=== PATIENT | male | born 1945 | race Caucasian/White ===

== ENCOUNTER 2017-08-02 14:48 | Inpatient (IN) ==
[2017-08-02 16:20] LABS: Apearance,Urine CLOUDY (Clear); Bacteria,Urine Many /HPF (Few); Bilirubin,Urine Negative (Negative); Blood, Urine Negative (Negative); Glucose,Urine (UA) Negative (Negative); Ketones,Urine Negative (Negative); Mucus,Urine Moderate /LPF (Occasional); Nitrite,Urine Positive (Negative); Protein,Urine 30 MG/DL; RBC,Urine 17 /HPF (0-4); Urine Color Yellow (Yellow); Urine Specific Gravity 1.021 (1.001-1.035); Urine Urobilinogen < 2.0 EU/DL (0.2-1.0); WBC,Urine 886 /HPF (0-6)
[2017-08-02 16:32] LABS: Basophils % 0.1 % (0.0-0.8); Eosinophils # 0.1 10*3/uL (0.0-0.87); Eosinophils % 0.6 % (0.00-10.9); Hemoglobin 14.4 GM/DL (14.0-18.0); Immature Granulocytes % 0.4 %; Immature Granulocytes Absolute 0.05 #; Lymphocytes # 1.3 10*3/uL (1.4-4.0); Mean Corpuscular HGB Conc 33.5 GM/DL (32-36); Mean Corpuscular Hemoglobin 30 PG (27-34); Mean Corpuscular Volume 90.3 FL (87-102); Mean Platelet Volume 9.7 FL (9.6-12.0); Monocytes # 1.4 10*3/uL (0.11-0.8); Monocytes % 9.7 % (1.7-12.7); Neutrophils # 11.3 10*3/uL (1.4-7.4); Neutrophils % 80.2 % (38.7-73.9); Platelet Count 373 T/CUMM (130-400); Red Blood Count 4.76 MC/CUMM (3.8-5.5); Red Cell Distribution Width 13.2 % (9.3-17.3); White Blood Count 14.1 T/CUMM (4-12)
[2017-08-02 16:54] LABS: Albumin 2.2 G/DL (3.4-5.0); Bilirubin,Total 0.4 MG/DL (0.2-1.0); Calcium 8.6 MG/DL (8.5-10.1); Osmolality,Calculated 284.3 MOS/KG (273-304); Potassium 4.3 MMOL/L (3.5-5.1); Total Protein 6.4 G/DL (6.4-8.3)
[2017-08-02] MEDS ORDERED: SODIUM CHLORIDE 0.9% 1,000 ML IV STA (16:58)
[2017-08-02] MEDS ORDERED: ceFAZolin 1,000 MG VIAL ONE (17:15)
[2017-08-02] MEDS ORDERED: ACETAMINOPHEN 325 MG TABLET PO PRN (18:14)
[2017-08-02] MEDS: POTASSIUM CHLORIDE 20 MEQ TABLET PO SCH ×2 (18:49→20:45)
[2017-08-02] MEDS: ENOXAPARIN 40 MG/0.4 ML SYRINGE SUBCUT SCH (18:56)
[2017-08-02] MEDS: SODIUM CHLORIDE 0.45% 1,000 ML IV SCH (18:57)
[2017-08-02 20:18] LABS: Free T4 (Free Thyroxine) 1.38 NG/DL (0.76-1.46); Thyroid Stimulating Hormone 1.33 uIU/ml (0.358-3.74)
[2017-08-02] MEDS: PHENYTOIN ER 100 MG CAPSULE PO SCH (20:45)
[2017-08-02] MEDS: PHENobarbital 30 MG TABLET PO SCH (20:46)
[2017-08-03] MEDS: SODIUM CHLORIDE 0.45% 1,000 ML IV SCH ×2 (05:00→15:05)
[2017-08-03 08:42] LABS: Basophils % 0.2 % (0.0-0.8); Eosinophils # 0.3 10*3/uL (0.0-0.87); Eosinophils % 2.7 % (0.00-10.9); Hematocrit 33.5 VOL% (42.0-52.0); Hemoglobin 11.5 GM/DL (14.0-18.0); Immature Granulocytes % 0.3 %; Immature Granulocytes Absolute 0.03 #; Lymphocytes # 1.9 10*3/uL (1.4-4.0); Lymphocytes % 20.2 % (21.2-54.2); Mean Corpuscular HGB Conc 34.3 GM/DL (32-36); Mean Corpuscular Hemoglobin 31 PG (27-34); Mean Corpuscular Volume 89.3 FL (87-102); Mean Platelet Volume 10.4 FL (9.6-12.0); Monocytes # 0.9 10*3/uL (0.11-0.8); Monocytes % 9.5 % (1.7-12.7); Neutrophils # 6.2 10*3/uL (1.4-7.4); Neutrophils % 67.1 % (38.7-73.9); Platelet Count 281 T/CUMM (130-400); Red Blood Count 3.75 MC/CUMM (3.8-5.5); Red Cell Distribution Width 13.2 % (9.3-17.3); White Blood Count 9.2 T/CUMM (4-12)
[2017-08-03 09:10] LABS: Osmolality,Calculated 278.4 MOS/KG (273-304)
[2017-08-03] MEDS: PHENobarbital 30 MG TABLET PO SCH ×2 (10:06→21:00)
[2017-08-03] MEDS: FOLIC ACID 1 MG TABLET PO SCH (10:06)
[2017-08-03] MEDS: LEVOTHYROXINE 50 MCG TABLET PO SCH (10:06)
[2017-08-03] MEDS: PHENYTOIN ER 100 MG CAPSULE PO SCH ×2 (10:06→10:31)
[2017-08-03] MEDS: predniSONE 5 MG TABLET PO SCH (10:06)
[2017-08-03] MEDS: SIMVASTATIN 40 MG TABLET PO SCH (10:06)
[2017-08-03] MEDS: POTASSIUM CHLORIDE 20 MEQ TABLET PO SCH ×4 (10:06→20:59)
[2017-08-03] MEDS: PANTOPRAZOLE 40 MG TABLET PO SCH (10:08)
[2017-08-03] MEDS: DOCUSATE SODIUM 100 MG CAPSULE PO SCH (10:08)
[2017-08-03] MEDS: TAMSULOSIN 0.4 MG CAPSULE PO SCH (10:08)
[2017-08-03] MEDS: ZINC OXIDE PASTE 113 GM TUBE TOP SCH ×2 (15:00→21:00)
[2017-08-03] MEDS: PHENYTOIN 100 MG/4 ML UDCUP PO SCH ×2 (15:00→20:59)
[2017-08-03] MEDS: DUTASTERIDE 0.5 MG CAPSULE PO SCH (15:00)
[2017-08-03] MEDS: ENOXAPARIN 40 MG/0.4 ML SYRINGE SUBCUT SCH (17:49)
[2017-08-04] MEDS: SODIUM CHLORIDE 0.45% 1,000 ML IV SCH ×2 (02:11→13:18)
[2017-08-04] MEDS ORDERED: fentaNYL 100 MCG/2 ML VIAL IV ONE (06:00)
[2017-08-04] MEDS ORDERED: MIDAZOLAM 2 MG/2 ML VIAL IV ONE (06:00)
[2017-08-04 07:17] LABS: PT Patient Result 10.2 SECS; Partial Thromboplastin Time 38.6 SECS (0-40)
[2017-08-04] MEDS: DOCUSATE SODIUM 100 MG CAPSULE PO SCH (13:15)
[2017-08-04] MEDS: PHENYTOIN 100 MG/4 ML UDCUP PO SCH ×3 (13:15→21:04)
[2017-08-04] MEDS: predniSONE 5 MG TABLET PO SCH (13:16)
[2017-08-04] MEDS: POTASSIUM CHLORIDE 20 MEQ TABLET PO SCH ×4 (13:16→21:03)
[2017-08-04] MEDS: LEVOTHYROXINE 50 MCG TABLET PO SCH (13:16)
[2017-08-04] MEDS: PHENobarbital 30 MG TABLET PO SCH ×2 (13:16→21:03)
[2017-08-04] MEDS: PANTOPRAZOLE 40 MG TABLET PO SCH (13:16)
[2017-08-04] MEDS: FOLIC ACID 1 MG TABLET PO SCH (13:16)
[2017-08-04] MEDS: TAMSULOSIN 0.4 MG CAPSULE PO SCH (13:16)
[2017-08-04] MEDS: DUTASTERIDE 0.5 MG CAPSULE PO SCH (13:16)
[2017-08-04] MEDS: ZINC OXIDE PASTE 113 GM TUBE TOP SCH ×2 (13:18→21:35)
[2017-08-04] MEDS: SIMVASTATIN 40 MG TABLET PO SCH (13:19)
[2017-08-04] MEDS: ENOXAPARIN 40 MG/0.4 ML SYRINGE SUBCUT SCH (18:10)
[2017-08-05] MEDS: PHENYTOIN 100 MG/4 ML UDCUP PO SCH ×3 (09:22→20:06)
[2017-08-05] MEDS: SODIUM CHLORIDE 0.45% 1,000 ML IV SCH ×3 (09:22→17:07)
[2017-08-05] MEDS: LEVOTHYROXINE 50 MCG TABLET PO SCH (09:23)
[2017-08-05] MEDS: POTASSIUM CHLORIDE 20 MEQ TABLET PO SCH ×4 (09:23→20:06)
[2017-08-05] MEDS: PHENobarbital 30 MG TABLET PO SCH ×2 (09:23→20:06)
[2017-08-05] MEDS: DUTASTERIDE 0.5 MG CAPSULE PO SCH (09:23)
[2017-08-05] MEDS: PANTOPRAZOLE 40 MG TABLET PO SCH (09:23)
[2017-08-05] MEDS: predniSONE 5 MG TABLET PO SCH (09:23)
[2017-08-05] MEDS: SIMVASTATIN 40 MG TABLET PO SCH (09:23)
[2017-08-05] MEDS: TAMSULOSIN 0.4 MG CAPSULE PO SCH (09:23)
[2017-08-05] MEDS: FOLIC ACID 1 MG TABLET PO SCH (09:23)
[2017-08-05] MEDS: DOCUSATE SODIUM 100 MG CAPSULE PO SCH (09:23)
[2017-08-05] MEDS: ZINC OXIDE PASTE 113 GM TUBE TOP SCH ×2 (09:24→20:07)
[2017-08-05] MEDS ORDERED: SODIUM CHLORIDE 0.9% 500 ML IV ONE ×2 (11:34→12:30)
[2017-08-05 12:04] LABS: Basophils % 0.3 % (0.0-0.8); Eosinophils # 0.3 10*3/uL (0.0-0.87); Eosinophils % 4.4 % (0.00-10.9); Hematocrit 32.5 VOL% (42.0-52.0); Hemoglobin 11.1 GM/DL (14.0-18.0); Immature Granulocytes % 0.5 %; Immature Granulocytes Absolute 0.03 #; Lymphocytes # 1.6 10*3/uL (1.4-4.0); Lymphocytes % 24.6 % (21.2-54.2); Mean Corpuscular HGB Conc 34.2 GM/DL (32-36); Mean Corpuscular Hemoglobin 30 PG (27-34); Mean Corpuscular Volume 88.1 FL (87-102); Mean Platelet Volume 9.7 FL (9.6-12.0); Monocytes # 0.7 10*3/uL (0.11-0.8); Neutrophils # 3.8 10*3/uL (1.4-7.4); Neutrophils % 59.2 % (38.7-73.9); Platelet Count 280 T/CUMM (130-400); Red Blood Count 3.69 MC/CUMM (3.8-5.5); Red Cell Distribution Width 13.2 % (9.3-17.3); White Blood Count 6.4 T/CUMM (4-12)
[2017-08-05 12:42] LABS: Alanine Aminotransferase 22 U/L (16-61); Albumin 1.8 G/DL (3.4-5.0); Alkaline Phosphatase 65 U/L (45-117); Aspartate Amino Transferase 46 U/L (0-37); Bilirubin,Total < 0.39 MG/DL (0.2-1.0); Blood Urea Nitrogen 6 MG/DL (7-18); Calcium 7.8 MG/DL (8.5-10.1); Glucose 89 MG/DL (74-106); Osmolality,Calculated 275.4 MOS/KG (273-304); Potassium 3.5 MMOL/L (3.5-5.1); Sodium 140 MMOL/L (136-145); Total Protein 5.1 G/DL (6.4-8.3)
[2017-08-05] MEDS ORDERED: SODIUM CHLORIDE 0.9% 1,000 ML IV ONE (14:15)
[2017-08-05] MEDS: SULFAMETHOX/TRIMETHOPRIM 200-40 MG/5 ML -20 ML UDCUP PO SCH ×2 (17:06→20:08)
[2017-08-05] MEDS: ENOXAPARIN 40 MG/0.4 ML SYRINGE SUBCUT SCH (17:14)
[2017-08-06] MEDS: SODIUM CHLORIDE 0.45% 1,000 ML IV SCH ×3 (02:00→23:10)
[2017-08-06] MEDS: PHENYTOIN 100 MG/4 ML UDCUP PO SCH ×3 (09:24→21:09)
[2017-08-06] MEDS: predniSONE 5 MG TABLET PO SCH (09:25)
[2017-08-06] MEDS: POTASSIUM CHLORIDE 20 MEQ TABLET PO SCH ×4 (09:25→21:09)
[2017-08-06] MEDS: PHENobarbital 30 MG TABLET PO SCH ×2 (09:25→21:09)
[2017-08-06] MEDS: LEVOTHYROXINE 50 MCG TABLET PO SCH (09:25)
[2017-08-06] MEDS: DOCUSATE SODIUM 100 MG CAPSULE PO SCH (09:25)
[2017-08-06] MEDS: TAMSULOSIN 0.4 MG CAPSULE PO SCH (09:25)
[2017-08-06] MEDS: PANTOPRAZOLE 40 MG TABLET PO SCH (09:25)
[2017-08-06] MEDS: ZINC OXIDE PASTE 113 GM TUBE TOP SCH ×2 (09:25→22:09)
[2017-08-06] MEDS: FOLIC ACID 1 MG TABLET PO SCH (09:25)
[2017-08-06] MEDS: DUTASTERIDE 0.5 MG CAPSULE PO SCH (09:25)
[2017-08-06] MEDS: SULFAMETHOX/TRIMETHOPRIM 200-40 MG/5 ML -20 ML UDCUP PO SCH ×2 (09:25→21:08)
[2017-08-06] MEDS: SIMVASTATIN 40 MG TABLET PO SCH (09:26)
[2017-08-06] MEDS: ENOXAPARIN 40 MG/0.4 ML SYRINGE SUBCUT SCH (17:54)
[2017-08-07] MEDS: ONDANSETRON 4 MG/2 ML VIAL IV PRN (04:25)
[2017-08-07] MEDS: MORPHINE 2 MG/1 ML SYRINGE IV PRN (04:28)
[2017-08-07] MEDS: PANTOPRAZOLE 40 MG TABLET PO SCH (08:54)
[2017-08-07] MEDS: DOCUSATE SODIUM 100 MG CAPSULE PO SCH (08:54)
[2017-08-07] MEDS: PHENYTOIN 100 MG/4 ML UDCUP PO SCH ×3 (08:54→22:42)
[2017-08-07] MEDS: predniSONE 5 MG TABLET PO SCH (08:54)
[2017-08-07] MEDS: PHENobarbital 30 MG TABLET PO SCH ×2 (08:54→22:44)
[2017-08-07] MEDS: TAMSULOSIN 0.4 MG CAPSULE PO SCH (08:54)
[2017-08-07] MEDS: FOLIC ACID 1 MG TABLET PO SCH (08:54)
[2017-08-07] MEDS: DUTASTERIDE 0.5 MG CAPSULE PO SCH (08:54)
[2017-08-07] MEDS: SULFAMETHOX/TRIMETHOPRIM 200-40 MG/5 ML -20 ML UDCUP PO SCH ×2 (08:54→22:42)
[2017-08-07] MEDS: POTASSIUM CHLORIDE 20 MEQ TABLET PO SCH ×4 (08:54→22:43)
[2017-08-07] MEDS: SIMVASTATIN 40 MG TABLET PO SCH (08:55)
[2017-08-07] MEDS: LEVOTHYROXINE 50 MCG TABLET PO SCH (08:55)
[2017-08-07] MEDS: ZINC OXIDE PASTE 113 GM TUBE TOP SCH (08:57)
[2017-08-07] MEDS: SODIUM CHLORIDE 0.45% 1,000 ML IV SCH ×2 (10:35→22:04)
[2017-08-07 16:18] LABS: Basophils % 0.2 % (0.0-0.8); Eosinophils # 0.2 10*3/uL (0.0-0.87); Eosinophils % 3.8 % (0.00-10.9); Hematocrit 33.5 VOL% (42.0-52.0); Hemoglobin 11.7 GM/DL (14.0-18.0); Immature Granulocytes % 0.3 %; Immature Granulocytes Absolute 0.02 #; Lymphocytes # 1.3 10*3/uL (1.4-4.0); Lymphocytes % 20.5 % (21.2-54.2); Mean Corpuscular HGB Conc 34.9 GM/DL (32-36); Mean Corpuscular Hemoglobin 31 PG (27-34); Mean Corpuscular Volume 88.2 FL (87-102); Mean Platelet Volume 9.9 FL (9.6-12.0); Monocytes # 0.6 10*3/uL (0.11-0.8); Monocytes % 9.9 % (1.7-12.7); Neutrophils # 4.1 10*3/uL (1.4-7.4); Neutrophils % 65.3 % (38.7-73.9); Platelet Count 294 T/CUMM (130-400); Red Cell Distribution Width 13.1 % (9.3-17.3); White Blood Count 6.3 T/CUMM (4-12)
[2017-08-07] MEDS: ENOXAPARIN 40 MG/0.4 ML SYRINGE SUBCUT SCH (17:42)
[2017-08-07] MEDS: FLUCONAZOLE INJ 200 MG in PREMIX 1 EACH IV SCH (18:56)
[2017-08-08] MEDS: ONDANSETRON 4 MG/2 ML VIAL IV PRN (00:02)
[2017-08-08] MEDS: MORPHINE 2 MG/1 ML SYRINGE IV PRN (00:03)
[2017-08-08] MEDS: ZINC OXIDE PASTE 113 GM TUBE TOP SCH ×3 (00:08→23:03)
[2017-08-08] MEDS: SULFAMETHOX/TRIMETHOPRIM 200-40 MG/5 ML -20 ML UDCUP PO SCH ×2 (09:15→23:18)
[2017-08-08] MEDS: DUTASTERIDE 0.5 MG CAPSULE PO SCH (09:15)
[2017-08-08] MEDS: PHENYTOIN 100 MG/4 ML UDCUP PO SCH (09:16)
[2017-08-08] MEDS: FOLIC ACID 1 MG TABLET PO SCH (09:16)
[2017-08-08] MEDS: TAMSULOSIN 0.4 MG CAPSULE PO SCH (09:16)
[2017-08-08] MEDS: DOCUSATE SODIUM 100 MG CAPSULE PO SCH (09:16)
[2017-08-08] MEDS: POTASSIUM CHLORIDE 20 MEQ TABLET PO SCH ×4 (09:17→23:18)
[2017-08-08] MEDS: PHENobarbital 30 MG TABLET PO SCH ×2 (09:18→23:18)
[2017-08-08] MEDS: PANTOPRAZOLE 40 MG TABLET PO SCH (09:21)
[2017-08-08] MEDS: predniSONE 5 MG TABLET PO SCH (09:21)
[2017-08-08] MEDS: SIMVASTATIN 40 MG TABLET PO SCH (09:22)
[2017-08-08] MEDS: LEVOTHYROXINE 50 MCG TABLET PO SCH (09:22)
[2017-08-08] MEDS: SODIUM CHLORIDE 0.45% 1,000 ML IV SCH ×2 (09:58→19:05)
[2017-08-08] MEDS: PHENobarbital 65 MG/1 ML VIAL IV SCH (15:18)
[2017-08-08] MEDS: PHENYTOIN 100 MG/2 ML VIAL IV SCH ×2 (15:23→22:58)
[2017-08-08] MEDS: FLUCONAZOLE INJ 200 MG in PREMIX 1 EACH IV SCH (19:05)
[2017-08-09] MEDS: PHENobarbital 65 MG/1 ML VIAL IV SCH ×2 (02:59→16:15)
[2017-08-09 06:47] LABS: Calcium 8.2 MG/DL (8.5-10.1); Osmolality,Calculated 274.4 MOS/KG (273-304); Potassium 3.5 MMOL/L (3.5-5.1)
[2017-08-09] MEDS: FOLIC ACID 1 MG TABLET PO SCH (09:02)
[2017-08-09] MEDS: SULFAMETHOX/TRIMETHOPRIM 200-40 MG/5 ML -20 ML UDCUP PO SCH ×2 (09:02→20:19)
[2017-08-09] MEDS: POTASSIUM CHLORIDE 20 MEQ TABLET PO SCH ×4 (09:02→20:19)
[2017-08-09] MEDS: PHENYTOIN 100 MG/2 ML VIAL IV SCH ×3 (09:02→22:13)
[2017-08-09] MEDS: DUTASTERIDE 0.5 MG CAPSULE PO SCH (09:02)
[2017-08-09] MEDS: DOCUSATE SODIUM 100 MG CAPSULE PO SCH (09:02)
[2017-08-09] MEDS: TAMSULOSIN 0.4 MG CAPSULE PO SCH (09:02)
[2017-08-09] MEDS: LEVOTHYROXINE 50 MCG TABLET PO SCH (09:03)
[2017-08-09] MEDS: PANTOPRAZOLE 40 MG TABLET PO SCH (09:03)
[2017-08-09] MEDS: PHENobarbital 30 MG TABLET PO SCH ×2 (09:03→20:20)
[2017-08-09] MEDS: predniSONE 5 MG TABLET PO SCH (09:03)
[2017-08-09] MEDS: SIMVASTATIN 40 MG TABLET PO SCH (09:03)
[2017-08-09] MEDS: SODIUM CHLORIDE 0.45% 1,000 ML IV SCH ×3 (09:32→22:12)
[2017-08-09] MEDS: ZINC OXIDE PASTE 113 GM TUBE TOP SCH ×2 (10:21→22:13)
[2017-08-09] MEDS: FLUCONAZOLE INJ 200 MG in PREMIX 1 EACH IV SCH (18:33)
[2017-08-10] MEDS: PHENobarbital 65 MG/1 ML VIAL IV SCH ×2 (02:44→15:10)
[2017-08-10] MEDS: MORPHINE 2 MG/1 ML SYRINGE IV PRN (02:45)
[2017-08-10] MEDS: PHENYTOIN 100 MG/2 ML VIAL IV SCH ×3 (06:15→21:54)
[2017-08-10] MEDS: PHENobarbital 30 MG TABLET PO SCH (08:30)
[2017-08-10] MEDS: FOLIC ACID 1 MG TABLET PO SCH (08:30)
[2017-08-10] MEDS: predniSONE 5 MG TABLET PO SCH (08:30)
[2017-08-10] MEDS: LEVOTHYROXINE 50 MCG TABLET PO SCH (08:30)
[2017-08-10] MEDS: DOCUSATE SODIUM 100 MG CAPSULE PO SCH (08:30)
[2017-08-10] MEDS: POTASSIUM CHLORIDE 20 MEQ TABLET PO SCH ×4 (08:30→21:37)
[2017-08-10] MEDS: TAMSULOSIN 0.4 MG CAPSULE PO SCH (08:30)
[2017-08-10] MEDS: PANTOPRAZOLE 40 MG TABLET PO SCH (08:30)
[2017-08-10] MEDS: SIMVASTATIN 40 MG TABLET PO SCH (08:30)
[2017-08-10] MEDS: SULFAMETHOX/TRIMETHOPRIM 200-40 MG/5 ML -20 ML UDCUP PO SCH ×2 (08:30→21:34)
[2017-08-10] MEDS: DUTASTERIDE 0.5 MG CAPSULE PO SCH (08:30)
[2017-08-10] MEDS ORDERED: PHENYLEPHRINE 1 MG/10 ML SYRINGE IV ONE (09:00)
[2017-08-10] MEDS ORDERED: LIDOCAINE 100 MG/5 ML SYRINGE ONE (09:00)
[2017-08-10] MEDS ORDERED: PROPOFOL 200 MG/20 ML VIAL IV ONE (09:00)
[2017-08-10] MEDS ORDERED: GLUCAGON 1 MG VIAL IM PRN (09:19)
[2017-08-10] MEDS ORDERED: DEXTROSE 50% 25 GM/50 ML VIAL IV PRN (09:19)
[2017-08-10] MEDS: SODIUM CHLORIDE 0.45% 1,000 ML IV SCH ×2 (10:09→18:15)
[2017-08-10] MEDS: ZINC OXIDE PASTE 113 GM TUBE TOP SCH ×2 (10:12→21:57)
[2017-08-10] MEDS: INSULIN REGULAR 100 UNIT/ML SUBCUT SCH ×3 (14:45→23:55)
[2017-08-10] MEDS: ONDANSETRON 4 MG/2 ML VIAL IV PRN (16:42)
[2017-08-10] MEDS: FLUCONAZOLE INJ 200 MG in PREMIX 1 EACH IV SCH (18:19)
[2017-08-11] MEDS: PHENobarbital 65 MG/1 ML VIAL IV SCH ×2 (02:55→14:03)
[2017-08-11] MEDS: SODIUM CHLORIDE 0.45% 1,000 ML IV SCH ×2 (02:55→12:29)
[2017-08-11] MEDS: PHENYTOIN 100 MG/2 ML VIAL IV SCH ×3 (05:31→22:08)
[2017-08-11] MEDS: INSULIN REGULAR 100 UNIT/ML SUBCUT SCH ×3 (05:32→17:22)
[2017-08-11 06:54] LABS: Basophils % 0.2 % (0.0-0.8); Eosinophils # 0.1 10*3/uL (0.0-0.87); Eosinophils % 0.4 % (0.00-10.9); Hematocrit 34.8 VOL% (42.0-52.0); Hemoglobin 11.9 GM/DL (14.0-18.0); Immature Granulocytes % 0.3 %; Immature Granulocytes Absolute 0.04 #; Lymphocytes # 2.1 10*3/uL (1.4-4.0); Lymphocytes % 16.5 % (21.2-54.2); Mean Corpuscular HGB Conc 34.2 GM/DL (32-36); Mean Corpuscular Hemoglobin 30 PG (27-34); Mean Platelet Volume 9.7 FL (9.6-12.0); Monocytes # 1.2 10*3/uL (0.11-0.8); Monocytes % 9.2 % (1.7-12.7); Neutrophils # 9.4 10*3/uL (1.4-7.4); Neutrophils % 73.4 % (38.7-73.9); Platelet Count 336 T/CUMM (130-400); Red Cell Distribution Width 13.7 % (9.3-17.3); White Blood Count 12.8 T/CUMM (4-12)
[2017-08-11 07:35] LABS: Calcium 8.5 MG/DL (8.5-10.1); Magnesium 1.8 MG/DL (1.8-2.4); Osmolality,Calculated 277.4 MOS/KG (273-304); Phosphorous 2.1 MG/DL (2.5-4.9); Potassium 3.7 MMOL/L (3.5-5.1); Prealbumin 11.5 MG/DL (20-40)
[2017-08-11] MEDS: DUTASTERIDE 0.5 MG CAPSULE PO SCH (08:20)
[2017-08-11] MEDS: POTASSIUM CHLORIDE 20 MEQ TABLET PO SCH ×4 (08:20→20:38)
[2017-08-11] MEDS: DOCUSATE SODIUM 100 MG CAPSULE PO SCH (08:20)
[2017-08-11] MEDS: TAMSULOSIN 0.4 MG CAPSULE PO SCH (08:20)
[2017-08-11] MEDS: LEVOTHYROXINE 50 MCG TABLET PO SCH (08:20)
[2017-08-11] MEDS: FOLIC ACID 1 MG TABLET PO SCH (08:21)
[2017-08-11] MEDS: predniSONE 5 MG TABLET PO SCH (08:21)
[2017-08-11] MEDS: SIMVASTATIN 40 MG TABLET PO SCH (08:21)
[2017-08-11] MEDS: PANTOPRAZOLE 40 MG TABLET PO SCH (08:21)
[2017-08-11] MEDS: ZINC OXIDE PASTE 113 GM TUBE TOP SCH ×2 (08:23→20:39)
[2017-08-11] MEDS: SULFAMETHOX/TRIMETHOPRIM 200-40 MG/5 ML -20 ML UDCUP PO SCH ×2 (08:24→20:38)
[2017-08-11] MEDS: FLUCONAZOLE INJ 200 MG in PREMIX 1 EACH IV SCH (16:59)
[2017-08-11] MEDS ORDERED: VANCOMYCIN INJ 1,000 MG in SODIUM CHLORIDE 0.9% 250 ML IV ONE (17:35)
[2017-08-12] MEDS: INSULIN REGULAR 100 UNIT/ML SUBCUT SCH ×4 (00:48→18:18)
[2017-08-12] MEDS: PHENobarbital 65 MG/1 ML VIAL IV SCH ×2 (02:08→15:34)
[2017-08-12] MEDS: SODIUM CHLORIDE 0.45% 1,000 ML IV SCH ×2 (02:08→13:50)
[2017-08-12] MEDS: PHENYTOIN 100 MG/2 ML VIAL IV SCH ×2 (05:40→15:36)
[2017-08-12 08:26] LABS: Magnesium 1.8 MG/DL (1.8-2.4); Phosphorous 1.4 MG/DL (2.5-4.9); Prealbumin 10.1 MG/DL (20-40)
[2017-08-12 08:33] LABS: Calcium 7.7 MG/DL (8.5-10.1); Osmolality,Calculated 277.4 MOS/KG (273-304); Potassium 3.7 MMOL/L (3.5-5.1)
[2017-08-12] MEDS: SULFAMETHOX/TRIMETHOPRIM 200-40 MG/5 ML -20 ML UDCUP PO SCH ×4 (09:17→22:02)
[2017-08-12] MEDS: FOLIC ACID 1 MG TABLET PO SCH (09:18)
[2017-08-12] MEDS: DOCUSATE SODIUM 100 MG CAPSULE PO SCH (09:18)
[2017-08-12] MEDS: predniSONE 5 MG TABLET PO SCH (09:18)
[2017-08-12] MEDS: SIMVASTATIN 40 MG TABLET PO SCH (09:18)
[2017-08-12] MEDS: LANSOPRAZOLE ODT 30 MG TABLET PEG SCH (09:18)
[2017-08-12] MEDS: POTASSIUM CHLORIDE 20 MEQ TABLET PO SCH ×5 (09:18→21:58)
[2017-08-12] MEDS: LEVOTHYROXINE 50 MCG TABLET PO SCH (09:18)
[2017-08-12] MEDS: ZINC OXIDE PASTE 113 GM TUBE TOP SCH ×2 (09:18→21:59)
[2017-08-12] MEDS: DUTASTERIDE 0.5 MG CAPSULE PO SCH (09:18)
[2017-08-12] MEDS: TAMSULOSIN 0.4 MG CAPSULE PO SCH (09:18)
[2017-08-12] MEDS: ENOXAPARIN 40 MG/0.4 ML SYRINGE SUBCUT SCH (18:40)
[2017-08-12] MEDS: FLUCONAZOLE INJ 200 MG in PREMIX 1 EACH IV SCH (18:41)
[2017-08-13] MEDS: INSULIN REGULAR 100 UNIT/ML SUBCUT SCH ×4 (00:15→17:44)
[2017-08-13] MEDS: DUTASTERIDE 0.5 MG CAPSULE PO SCH (09:15)
[2017-08-13] MEDS: POTASSIUM CHLORIDE 20 MEQ TABLET PO SCH ×4 (09:15→21:51)
[2017-08-13] MEDS: predniSONE 5 MG TABLET PO SCH (09:15)
[2017-08-13] MEDS: SIMVASTATIN 40 MG TABLET PO SCH (09:15)
[2017-08-13] MEDS: TAMSULOSIN 0.4 MG CAPSULE PO SCH (09:15)
[2017-08-13] MEDS: DOCUSATE SODIUM 100 MG CAPSULE PO SCH (09:15)
[2017-08-13] MEDS: LANSOPRAZOLE ODT 30 MG TABLET PEG SCH (09:16)
[2017-08-13] MEDS: LEVOTHYROXINE 50 MCG TABLET PO SCH (09:16)
[2017-08-13] MEDS: CEFUROXIME 50 MG/ML 100 ML/BOTTLE PEG SCH ×2 (09:16→21:51)
[2017-08-13] MEDS: FOLIC ACID 1 MG TABLET PO SCH (09:16)
[2017-08-13] MEDS: DOXYCYCLINE MONOHYDRATE SUSP 5 MG/ML 60 ML/BOTTLE PEG SCH ×2 (09:16→21:51)
[2017-08-13] MEDS: ZINC OXIDE PASTE 113 GM TUBE TOP SCH ×2 (09:16→21:55)
[2017-08-13 09:24] LABS: Basophils % 0.3 % (0.0-0.8); Eosinophils # 0.4 10*3/uL (0.0-0.87); Eosinophils % 5.6 % (0.00-10.9); Hematocrit 32.1 VOL% (42.0-52.0); Immature Granulocytes % 0.3 %; Immature Granulocytes Absolute 0.02 #; Lymphocytes # 2.3 10*3/uL (1.4-4.0); Lymphocytes % 34.4 % (21.2-54.2); Mean Corpuscular HGB Conc 34.3 GM/DL (32-36); Mean Corpuscular Hemoglobin 30 PG (27-34); Mean Corpuscular Volume 88.2 FL (87-102); Monocytes # 0.5 10*3/uL (0.11-0.8); Monocytes % 7.8 % (1.7-12.7); Neutrophils # 3.5 10*3/uL (1.4-7.4); Neutrophils % 51.6 % (38.7-73.9); Platelet Count 247 T/CUMM (130-400); Red Blood Count 3.64 MC/CUMM (3.8-5.5); Red Cell Distribution Width 14.3 % (9.3-17.3); White Blood Count 6.8 T/CUMM (4-12)
[2017-08-13 09:47] LABS: Magnesium 1.8 MG/DL (1.8-2.4); Osmolality,Calculated 275.4 MOS/KG (273-304)
[2017-08-13] MEDS: SODIUM CHLORIDE 0.45% 1,000 ML IV SCH (12:45)
[2017-08-13] MEDS: FLUCONAZOLE INJ 200 MG in PREMIX 1 EACH IV SCH (17:43)
[2017-08-13] MEDS: ENOXAPARIN 40 MG/0.4 ML SYRINGE SUBCUT SCH (17:44)
[2017-08-14] MEDS: SODIUM CHLORIDE 0.45% 1,000 ML IV SCH ×3 (00:14→17:28)
[2017-08-14] MEDS: INSULIN REGULAR 100 UNIT/ML SUBCUT SCH ×4 (00:35→17:27)
[2017-08-14 05:32] LABS: Basophils % 0.5 % (0.0-0.8); Eosinophils # 0.4 10*3/uL (0.0-0.87); Eosinophils % 5.8 % (0.00-10.9); Hematocrit 33.6 VOL% (42.0-52.0); Hemoglobin 11.5 GM/DL (14.0-18.0); Immature Granulocytes % 0.3 %; Immature Granulocytes Absolute 0.02 #; Lymphocytes % 33.9 % (21.2-54.2); Mean Corpuscular HGB Conc 34.2 GM/DL (32-36); Mean Corpuscular Hemoglobin 31 PG (27-34); Mean Corpuscular Volume 89.1 FL (87-102); Mean Platelet Volume 10.3 FL (9.6-12.0); Monocytes # 0.5 10*3/uL (0.11-0.8); Neutrophils % 50.5 % (38.7-73.9); Platelet Count 288 T/CUMM (130-400); Red Blood Count 3.77 MC/CUMM (3.8-5.5); Red Cell Distribution Width 14.2 % (9.3-17.3)
[2017-08-14 05:51] LABS: Magnesium 1.9 MG/DL (1.8-2.4); Osmolality,Calculated 271.7 MOS/KG (273-304); Potassium 4.2 MMOL/L (3.5-5.1)
[2017-08-14] MEDS ORDERED: SODIUM CHLORIDE 0.9% 500 ML IV ONE (08:20)
[2017-08-14] MEDS: FOLIC ACID 1 MG TABLET PO SCH (09:43)
[2017-08-14] MEDS: SIMVASTATIN 40 MG TABLET PO SCH (09:43)
[2017-08-14] MEDS: LANSOPRAZOLE ODT 30 MG TABLET PEG SCH (09:43)
[2017-08-14] MEDS: POTASSIUM CHLORIDE 20 MEQ TABLET PO SCH ×4 (09:43→21:09)
[2017-08-14] MEDS: LEVOTHYROXINE 50 MCG TABLET PO SCH (09:43)
[2017-08-14] MEDS: TAMSULOSIN 0.4 MG CAPSULE PO SCH (09:43)
[2017-08-14] MEDS: predniSONE 5 MG TABLET PO SCH (09:43)
[2017-08-14] MEDS: DUTASTERIDE 0.5 MG CAPSULE PO SCH (09:43)
[2017-08-14] MEDS: DOXYCYCLINE MONOHYDRATE SUSP 5 MG/ML 60 ML/BOTTLE PEG SCH ×2 (09:44→21:17)
[2017-08-14] MEDS: DOCUSATE SODIUM 100 MG CAPSULE PO SCH (09:44)
[2017-08-14] MEDS: CEFUROXIME 50 MG/ML 100 ML/BOTTLE PEG SCH ×2 (09:44→21:17)
[2017-08-14] MEDS: ZINC OXIDE PASTE 113 GM TUBE TOP SCH ×2 (09:44→21:09)
[2017-08-14] MEDS: ENOXAPARIN 40 MG/0.4 ML SYRINGE SUBCUT SCH (17:27)
[2017-08-14] MEDS: FLUCONAZOLE INJ 200 MG in PREMIX 1 EACH IV SCH (17:27)
[2017-08-15] MEDS: INSULIN REGULAR 100 UNIT/ML SUBCUT SCH ×5 (00:45→23:46)
[2017-08-15 07:01] LABS: Basophils % 0.5 % (0.0-0.8); Eosinophils # 0.5 10*3/uL (0.0-0.87); Hematocrit 34.8 VOL% (42.0-52.0); Hemoglobin 11.7 GM/DL (14.0-18.0); Immature Granulocytes % 0.2 %; Immature Granulocytes Absolute 0.01 #; Lymphocytes # 2.6 10*3/uL (1.4-4.0); Lymphocytes % 40.8 % (21.2-54.2); Mean Corpuscular HGB Conc 33.6 GM/DL (32-36); Mean Corpuscular Hemoglobin 30 PG (27-34); Mean Corpuscular Volume 89.2 FL (87-102); Monocytes # 0.5 10*3/uL (0.11-0.8); Neutrophils # 2.8 10*3/uL (1.4-7.4); Neutrophils % 43.5 % (38.7-73.9); Platelet Count 277 T/CUMM (130-400); Red Cell Distribution Width 14.5 % (9.3-17.3); White Blood Count 6.5 T/CUMM (4-12)
[2017-08-15 07:25] LABS: Alanine Aminotransferase 12 U/L (16-61); Albumin 2.2 G/DL (3.4-5.0); Alkaline Phosphatase 83 U/L (45-117); Aspartate Amino Transferase 16 U/L (0-37); Bilirubin,Total < 0.39 MG/DL (0.2-1.0); Blood Urea Nitrogen 7 MG/DL (7-18); Calcium 8.3 MG/DL (8.5-10.1); Glucose 87 MG/DL (74-106); Osmolality,Calculated 271.7 MOS/KG (273-304); Sodium 138 MMOL/L (136-145); Total Protein 5.6 G/DL (6.4-8.3)
[2017-08-15] MEDS: DOCUSATE SODIUM 100 MG CAPSULE PO SCH (08:45)
[2017-08-15] MEDS: predniSONE 5 MG TABLET PO SCH (08:45)
[2017-08-15] MEDS: FOLIC ACID 1 MG TABLET PO SCH (08:45)
[2017-08-15] MEDS: DUTASTERIDE 0.5 MG CAPSULE PO SCH (08:45)
[2017-08-15] MEDS: POTASSIUM CHLORIDE 20 MEQ TABLET PO SCH ×4 (08:46→21:24)
[2017-08-15] MEDS: DOXYCYCLINE MONOHYDRATE SUSP 5 MG/ML 60 ML/BOTTLE PEG SCH ×2 (08:46→21:24)
[2017-08-15] MEDS: TAMSULOSIN 0.4 MG CAPSULE PO SCH (08:46)
[2017-08-15] MEDS: LEVOTHYROXINE 50 MCG TABLET PO SCH (08:46)
[2017-08-15] MEDS: LANSOPRAZOLE ODT 30 MG TABLET PEG SCH (08:46)
[2017-08-15] MEDS: ZINC OXIDE PASTE 113 GM TUBE TOP SCH ×2 (08:46→21:24)
[2017-08-15] MEDS: CEFUROXIME 50 MG/ML 100 ML/BOTTLE PEG SCH ×2 (08:46→21:24)
[2017-08-15] MEDS: SIMVASTATIN 40 MG TABLET PO SCH (08:46)
[2017-08-15] MEDS: FLUCONAZOLE INJ 200 MG in PREMIX 1 EACH IV SCH (17:49)
[2017-08-15] MEDS: ENOXAPARIN 40 MG/0.4 ML SYRINGE SUBCUT SCH (17:57)
[2017-08-15] MEDS: SODIUM CHLORIDE 0.45% 1,000 ML IV SCH (18:20)
[2017-08-16] MEDS: INSULIN REGULAR 100 UNIT/ML SUBCUT SCH ×2 (05:52→13:04)
[2017-08-16 08:02] LABS: Basophils % 0.6 % (0.0-0.8); Eosinophils # 0.5 10*3/uL (0.0-0.87); Eosinophils % 6.5 % (0.00-10.9); Hemoglobin 11.7 GM/DL (14.0-18.0); Immature Granulocytes % 0.3 %; Immature Granulocytes Absolute 0.02 #; Lymphocytes # 2.7 10*3/uL (1.4-4.0); Lymphocytes % 38.8 % (21.2-54.2); Mean Corpuscular HGB Conc 33.4 GM/DL (32-36); Mean Corpuscular Hemoglobin 30 PG (27-34); Mean Corpuscular Volume 89.1 FL (87-102); Mean Platelet Volume 9.7 FL (9.6-12.0); Monocytes # 0.7 10*3/uL (0.11-0.8); Monocytes % 10.1 % (1.7-12.7); Neutrophils % 43.7 % (38.7-73.9); Platelet Count 263 T/CUMM (130-400); Red Blood Count 3.93 MC/CUMM (3.8-5.5); Red Cell Distribution Width 14.6 % (9.3-17.3); White Blood Count 6.9 T/CUMM (4-12)
[2017-08-16 08:42] LABS: Calcium 8.6 MG/DL (8.5-10.1); Magnesium 1.7 MG/DL (1.8-2.4); Osmolality,Calculated 273.7 MOS/KG (273-304); Potassium 3.9 MMOL/L (3.5-5.1)
[2017-08-16 08:52] LABS: Calcium 8.6 MG/DL (8.5-10.1); Magnesium 1.9 MG/DL (1.8-2.4); Osmolality,Calculated 273.7 MOS/KG (273-304); Phosphorous 3.2 MG/DL (2.5-4.9); Potassium 3.9 MMOL/L (3.5-5.1)
[2017-08-16] MEDS: predniSONE 5 MG TABLET PO SCH (10:05)
[2017-08-16] MEDS: POTASSIUM CHLORIDE 20 MEQ TABLET PO SCH ×2 (10:06→13:56)
[2017-08-16] MEDS: DUTASTERIDE 0.5 MG CAPSULE PO SCH (10:06)
[2017-08-16] MEDS: LANSOPRAZOLE ODT 30 MG TABLET PEG SCH (10:06)
[2017-08-16] MEDS: FOLIC ACID 1 MG TABLET PO SCH (10:06)
[2017-08-16] MEDS: DOCUSATE SODIUM 100 MG CAPSULE PO SCH (10:06)
[2017-08-16] MEDS: TAMSULOSIN 0.4 MG CAPSULE PO SCH (10:06)
[2017-08-16] MEDS: LEVOTHYROXINE 50 MCG TABLET PO SCH (10:06)
[2017-08-16] MEDS: SIMVASTATIN 40 MG TABLET PO SCH (10:06)
[2017-08-16] MEDS: ZINC OXIDE PASTE 113 GM TUBE TOP SCH (10:07)
[2017-08-16] MEDS: CEFUROXIME 50 MG/ML 100 ML/BOTTLE PEG SCH (10:07)
[2017-08-16] MEDS: DOXYCYCLINE MONOHYDRATE SUSP 5 MG/ML 60 ML/BOTTLE PEG SCH (10:09)
[2017-08-16 16:46] VITALS: BP 103/57
== END 2017-08-16 16:45 | disposition home health service (06) | DRG 871 ==
LOC: EDUNIT# → EDBD → N.ED 14:48 → N.EDINP 16:45 → SUATTDRO 16:45 → N.EDINP 17:35 → N.5E 18:13
PROVIDERS: ADMIT Internal Medicine Geriatric Medicine; ATTEND Internal Medicine
PROC: EGDWPEG (ICD-10-PCS; 2017-08-10 07:35)

== ENCOUNTER 2017-09-06 08:58 | Inpatient (IN) ==
[2017-09-06] MEDS ORDERED: SODIUM CHLORIDE 0.9% 2,000 ML IV STA (09:18)
[2017-09-06] MEDS ORDERED: ONDANSETRON 4 MG/2 ML VIAL IV STA (09:18)
[2017-09-06] MEDS ORDERED: ONDANSETRON 4 MG/2 ML VIAL ONE (09:33)
[2017-09-06 09:57] LABS: INR 1.1; Partial Thromboplastin Time 35.3 SECS (0-40)
[2017-09-06 09:58] LABS: Basophils % 0.4 % (0.0-0.8); Hematocrit 45.5 VOL% (42.0-52.0); Hemoglobin 15.5 GM/DL (14.0-18.0); Immature Granulocytes % 0.4 %; Immature Granulocytes Absolute 0.02 #; Lymphocytes # 1.3 10*3/uL (1.4-4.0); Lymphocytes % 28.3 % (21.2-54.2); Mean Corpuscular HGB Conc 34.1 GM/DL (32-36); Mean Corpuscular Hemoglobin 31 PG (27-34); Mean Corpuscular Volume 90.6 FL (87-102); Mean Platelet Volume 13.7 FL (9.6-12.0); Monocytes # 0.7 10*3/uL (0.11-0.8); Monocytes % 15.1 % (1.7-12.7); Neutrophils # 2.5 10*3/uL (1.4-7.4); Neutrophils % 55.8 % (38.7-73.9); Platelet Count 252 T/CUMM (130-400); Red Blood Count 5.02 MC/CUMM (3.8-5.5); Red Cell Distribution Width 16.9 % (9.3-17.3); White Blood Count 4.5 T/CUMM (4-12)
[2017-09-06 10:12] LABS: Apearance,Urine CLOUDY (Clear); Bilirubin,Urine Negative (Negative); Blood, Urine Large mg/dL (Negative); Glucose,Urine (UA) 150 mg/dL (Negative); Ketones,Urine Negative (Negative); Mucus,Urine Many /LPF (Occasional); Nitrite,Urine Negative (Negative); Protein,Urine 100 MG/DL; RBC,Urine 423 /HPF (0-4); Urine Color Amber (Yellow); Urine Specific Gravity 1.033 (1.001-1.035); Urine Urobilinogen < 2.0 EU/DL (0.2-1.0); WBC,Urine 54 /HPF (0-6)
[2017-09-06 10:25] LABS: Band Neutrophils 3 % (0-10); Hypochromasia 1+; Lymphocytes 34 % (20-55); Metamyelocytes 1 %; Segmented Neutrophils 48 % (50-85); Total Cells Counted 100
[2017-09-06 10:28] LABS: Microcytosis 1+
[2017-09-06] MEDS ORDERED: PIPERACILLIN/TAZOBACTAM 3,375 MG in SODIUM CHLORIDE 0.9% 100 ML IV STA (11:16)
[2017-09-06 11:23] LABS: Albumin 1.9 G/DL (3.4-5.0); Calcium 8.3 MG/DL (8.5-10.1); Potassium 3.8 MMOL/L (3.5-5.1); Total Protein 5.3 G/DL (6.4-8.3)
[2017-09-06] MEDS ORDERED: SODIUM CHLORIDE 0.9% 1,000 ML IV STA (11:35)
[2017-09-06 11:45] LABS: Phenytoin (Dilantin) 5.7 UG/ML (10-20)
[2017-09-06] MEDS ORDERED: SODIUM CHLORIDE 0.9% 1,000 ML IV ONE (12:10)
[2017-09-06] MEDS ORDERED: ALBUTEROL 2.5 MG/3 ML NEB RESP TX PRN (12:14)
[2017-09-06] MEDS ORDERED: ONDANSETRON 4 MG/2 ML VIAL IV PRN (12:14)
[2017-09-06] MEDS: SODIUM CHLORIDE 0.9% 1,000 ML IV SCH ×2 (12:30→22:22)
[2017-09-06] MEDS: NOREPINEPHRINE 8 MG in SODIUM CHLORIDE 0.9% 242 ML IV SCH (13:30)
[2017-09-06] MEDS: PHENYTOIN 100 MG/2 ML VIAL IV SCH (15:50)
[2017-09-06] MEDS: PANTOPRAZOLE 40 MG VIAL IV SCH (16:04)
[2017-09-06] MEDS: VANCOMYCIN INJ 1,250 MG in SODIUM CHLORIDE 0.45% 250 ML IV SCH (16:04)
[2017-09-06] MEDS ORDERED: PIPERACILLIN/TAZOBACTAM 3,375 MG in SODIUM CHLORIDE 0.9% 100 ML IV SCH (17:00)
[2017-09-06] MEDS: PIPERACILLIN/TAZOBACTAM 3,375 MG in SODIUM CHLORIDE 0.9% 100 ML IV SCH (21:22)
[2017-09-07] MEDS: NOREPINEPHRINE 8 MG in SODIUM CHLORIDE 0.9% 242 ML IV SCH ×3 (01:33→21:39)
[2017-09-07] MEDS: PHENYTOIN 100 MG/2 ML VIAL IV SCH ×2 (03:00→14:11)
[2017-09-07] MEDS: PIPERACILLIN/TAZOBACTAM 3,375 MG in SODIUM CHLORIDE 0.9% 100 ML IV SCH ×3 (05:06→21:14)
[2017-09-07] MEDS: SODIUM CHLORIDE 0.9% 1,000 ML IV SCH ×3 (06:41→23:47)
[2017-09-07 06:50] LABS: Basophils # 0.1 10*3/uL (0.0-0.2); Hematocrit 41.6 VOL% (42.0-52.0); Hemoglobin 13.9 GM/DL (14.0-18.0); Immature Granulocytes % 0.7 %; Immature Granulocytes Absolute 0.06 #; Lymphocytes # 0.9 10*3/uL (1.4-4.0); Lymphocytes % 10.2 % (21.2-54.2); Mean Corpuscular HGB Conc 33.4 GM/DL (32-36); Mean Corpuscular Hemoglobin 31 PG (27-34); Mean Corpuscular Volume 92.7 FL (87-102); Mean Platelet Volume 10.5 FL (9.6-12.0); Monocytes # 1.2 10*3/uL (0.11-0.8); Monocytes % 12.8 % (1.7-12.7); Neutrophils # 6.9 10*3/uL (1.4-7.4); Neutrophils % 75.3 % (38.7-73.9); Platelet Count 261 T/CUMM (130-400); Red Blood Count 4.49 MC/CUMM (3.8-5.5); Red Cell Distribution Width 16.3 % (9.3-17.3); White Blood Count 9.1 T/CUMM (4-12)
[2017-09-07 07:00] LABS: INR 1.2; PT Patient Result 12.6 SECS
[2017-09-07 07:12] LABS: Band Neutrophils 7 % (0-10); Burr Cells Slight; Giant Platelets Few; Hypochromasia Slight; Lymphocytes 8 % (20-55); Ovalocytes Slight; Platelet Estimate Adequate; Segmented Neutrophils 75 % (50-85); Total Cells Counted 100
[2017-09-07 07:13] LABS: Microcytosis Slight
[2017-09-07 07:18] LABS: Partial Thromboplastin Time 45.9 SECS (0-40)
[2017-09-07 07:24] LABS: Calcium 9.1 MG/DL (8.5-10.1); Osmolality,Calculated 293.8 MOS/KG (273-304); Potassium 4.2 MMOL/L (3.5-5.1)
[2017-09-07] MEDS: VANCOMYCIN INJ 1,250 MG in SODIUM CHLORIDE 0.45% 250 ML IV SCH (08:58)
[2017-09-07] MEDS ORDERED: ZINC OXIDE PASTE 113 GM TUBE TOP PRN (10:29)
[2017-09-07] MEDS: PANTOPRAZOLE 40 MG VIAL IV SCH (14:11)
[2017-09-08] MEDS: VANCOMYCIN INJ 1,250 MG in SODIUM CHLORIDE 0.45% 250 ML IV SCH (01:09)
[2017-09-08] MEDS: PHENYTOIN 100 MG/2 ML VIAL IV SCH ×2 (02:56→15:02)
[2017-09-08] MEDS: PIPERACILLIN/TAZOBACTAM 3,375 MG in SODIUM CHLORIDE 0.9% 100 ML IV SCH ×2 (04:22→13:21)
[2017-09-08] MEDS: SODIUM CHLORIDE 0.9% 1,000 ML IV SCH ×2 (07:33→13:17)
[2017-09-08] MEDS ORDERED: INFLUENZA VIRUS VACCINE 0.5 ML SYRINGE IM ONE (09:00)
[2017-09-08] MEDS ORDERED: LIDOCAINE 1% 5 ML VIAL ONE (09:14)
[2017-09-08] MEDS ORDERED: ETOMIDATE 20 MG/10 ML VIAL IV ONE ×2 (09:14→09:30)
[2017-09-08] MEDS: PANTOPRAZOLE 40 MG VIAL IV SCH (13:19)
[2017-09-08] MEDS ORDERED: SALIVA SUBSTITUTE SPRAY 60 ML CAN SWISH/SWAL PRN (13:23)
[2017-09-08] MEDS ORDERED: HYDROmorphone 2 MG/1 ML VIAL IV PRN (14:46)
[2017-09-08] MEDS: NOREPINEPHRINE 8 MG in SODIUM CHLORIDE 0.9% 242 ML IV SCH (14:48)
[2017-09-08] MEDS: HYDROmorphone 2 MG/1 ML VIAL IV PRN (14:54)
[2017-09-09] MEDS: VANCOMYCIN INJ 1,250 MG in SODIUM CHLORIDE 0.45% 250 ML IV SCH ×2 (02:04→15:46)
[2017-09-09] MEDS: PIPERACILLIN/TAZOBACTAM 3,375 MG in SODIUM CHLORIDE 0.9% 100 ML IV SCH ×4 (02:06→20:54)
[2017-09-09] MEDS: SODIUM CHLORIDE 0.9% 1,000 ML IV SCH ×2 (02:07→11:45)
[2017-09-09] MEDS: PHENYTOIN 100 MG/2 ML VIAL IV SCH ×2 (02:26→15:50)
[2017-09-09] MEDS: PANTOPRAZOLE 40 MG VIAL IV SCH (11:44)
[2017-09-09] MEDS ORDERED: GLUCAGON 1 MG VIAL IM PRN (11:45)
[2017-09-09] MEDS ORDERED: DEXTROSE 50% 25 GM/50 ML VIAL IV PRN (11:45)
[2017-09-09] MEDS: METOCLOPRAMIDE 10 MG/2 ML VIAL IV SCH ×2 (13:31→17:28)
[2017-09-10] MEDS: METOCLOPRAMIDE 10 MG/2 ML VIAL IV SCH ×5 (00:15→23:18)
[2017-09-10] MEDS: SODIUM CHLORIDE 0.9% 1,000 ML IV SCH ×4 (03:05→18:36)
[2017-09-10] MEDS: PHENYTOIN 100 MG/2 ML VIAL IV SCH ×2 (03:30→15:30)
[2017-09-10] MEDS: VANCOMYCIN INJ 1,250 MG in SODIUM CHLORIDE 0.45% 250 ML IV SCH ×2 (03:38→15:30)
[2017-09-10] MEDS: PIPERACILLIN/TAZOBACTAM 3,375 MG in SODIUM CHLORIDE 0.9% 100 ML IV SCH ×3 (05:35→23:17)
[2017-09-10 06:37] LABS: Basophils % 0.3 % (0.0-0.8); Eosinophils # 0.1 10*3/uL (0.0-0.87); Eosinophils % 0.9 % (0.00-10.9); Hematocrit 36.9 VOL% (42.0-52.0); Hemoglobin 12.4 GM/DL (14.0-18.0); Immature Granulocytes % 0.5 %; Immature Granulocytes Absolute 0.04 #; Lymphocytes # 1.6 10*3/uL (1.4-4.0); Lymphocytes % 21.4 % (21.2-54.2); Mean Corpuscular HGB Conc 33.6 GM/DL (32-36); Mean Corpuscular Hemoglobin 30 PG (27-34); Mean Corpuscular Volume 90.2 FL (87-102); Mean Platelet Volume 10.6 FL (9.6-12.0); Monocytes % 12.6 % (1.7-12.7); NRBC # 0.02 10*3/uL; Neutrophils # 4.9 10*3/uL (1.4-7.4); Neutrophils % 64.3 % (38.7-73.9); Platelet Count 202 T/CUMM (130-400); Red Blood Count 4.09 MC/CUMM (3.8-5.5); Red Cell Distribution Width 16.2 % (9.3-17.3); White Blood Count 7.5 T/CUMM (4-12)
[2017-09-10 08:16] LABS: Hypochromasia 1+; Lymphocytes 14 % (20-55); Microcytosis 1+; Platelet Estimate Adequate; Segmented Neutrophils 78 % (50-85); Total Cells Counted 100
[2017-09-10] MEDS: PANTOPRAZOLE 40 MG VIAL IV SCH (12:20)
[2017-09-10 15:31] LABS: Albumin 1.4 G/DL (3.4-5.0); Calcium 7.9 MG/DL (8.5-10.1); Osmolality,Calculated 306.6 MOS/KG (273-304); Phosphorous 1.4 MG/DL (2.5-4.9); Potassium 2.8 MMOL/L (3.5-5.1)
[2017-09-10] MEDS: HYDROmorphone 2 MG/1 ML VIAL IV PRN (17:56)
[2017-09-10] MEDS ORDERED: VANCOMYCIN INJ 1,250 MG in SODIUM CHLORIDE 0.45% 250 ML IV SCH (20:00)
[2017-09-11] MEDS: PHENYTOIN 100 MG/2 ML VIAL IV SCH (02:25)
[2017-09-11] MEDS: METOCLOPRAMIDE 10 MG/2 ML VIAL IV SCH (06:17)
[2017-09-11] MEDS ORDERED: INFLUENZA VIRUS VACCINE 0.5 ML SYRINGE IM ONE (09:00)
[2017-09-11] MEDS: PIPERACILLIN/TAZOBACTAM 3,375 MG in SODIUM CHLORIDE 0.9% 100 ML IV SCH (09:47)
[2017-09-11] MEDS: HYDROmorphone 2 MG/1 ML VIAL IV PRN (09:48)
[2017-09-11] MEDS ORDERED: POTASSIUM CHLORIDE INJ 30 MEQ in SODIUM CHLORIDE 0.45% 1,000 ML IV SCH (11:00)
[2017-09-11] MEDS ORDERED: METOCLOPRAMIDE 10 MG/10 ML UDCUP PEG SCH (11:30)
[2017-09-11 12:24] VITALS: BP 104/53
[2017-09-11] MEDS ORDERED: PHENYTOIN 100 MG/4 ML UDCUP PEG SCH (21:00)
[2017-09-11] MEDS ORDERED: LANSOPRAZOLE ODT 30 MG TABLET PEG SCH (21:00)
[2017-09-11] MEDS ORDERED: POTASSIUM CHLORIDE 20 MEQ/15 ML UDCUP PO SCH (21:00)
[2017-09-11] MEDS ORDERED: PHENYTOIN 100 MG/4 ML UDCUP PO SCH (21:00)
[2017-09-12] MEDS ORDERED: FUROSEMIDE 40 MG/5 ML UDCUP PEG SCH (09:00)
[2017-09-12] MEDS ORDERED: POTASSIUM CHLORIDE 20 MEQ/15 ML UDCUP PO SCH (09:00)
[2017-09-12] MEDS ORDERED: FUROSEMIDE 40 MG/5 ML UDCUP PO SCH (09:00)
== END 2017-09-11 15:08 | disposition home or self-care (01) | DRG 907 ==
LOC: EDBD → EDUNIT# → N.ED 08:58 → N.EDINP 11:26 → N.ICU 12:57 → N.2E 09-08 19:32
PROVIDERS: ADMIT Hospitalist; ATTEND Hospitalist
PROC: EGDWPEG (ICD-10-PCS; 2017-09-08 09:05)